=== PATIENT | male | born 1965 | race Asian ===

== ENCOUNTER 2021-08-13 16:46 | Emergency (ER) | payer OTHER ==
[~2021-08-13] VITALS: Ht 165.1 cm; Wt 70.3 kg
[2021-08-13 16:46] VITALS: BP_SYST 132
--- NOTE | 2021-08-13 16:46 | NUR ---
BROUGHT BACK TO BED #4 AND TRIAGED. REPORT GIVEN TO DELMY
[2021-08-13] MEDS ORDERED: FAMOTIDINE PF 20 MG/2 ML VIAL IVP ONE (17:00)
[2021-08-13] MEDS ORDERED: methylPREDNISolone SOD SUCC/PF 62.5 MG/ML VIAL IVP ONE (17:00)
[2021-08-13] MEDS ORDERED: DIPHENHYDRAMINE INJ 50 MG/ML VIAL IVP ONE (17:00)
[2021-08-13] MEDS ORDERED: FAMO20TA8 PO (18:11)
[2021-08-13] MEDS ORDERED: DIPH25CA83 PO (18:11)
[2021-08-13] MEDS ORDERED: PRED20TA PO (18:11)
--- NOTE | 2021-08-13 18:13 | NUR ---
PT STATES FEELING BETTER VSS HIVE AND RENDNESS GETTING BETTER
--- NOTE | 2021-08-13 18:23 | NUR ---
Patient given written and verbal discharge instructions and verbalizes understanding. JESUS FENG MD discussed with patient the results and treatment provided. Patient in stable condition. ID arm band removed. IV catheter removed intact and dressing applied, no active bleeding. Rx of PEPCID, PREDNISONE, BENADRYL given. Patient educated on pain management and to follow up with PMD. Pain Scale 0. Opportunity for questions provided and answered. Medication side effect fact sheet provided.
[2021-08-13 18:24] VITALS: BP_SYST 144
== END 2021-08-13 18:23 | disposition home or self-care (01) ==
LOC: SED 16:46
DX: T63.481A Toxic effect of venom of other arthropod, accidental (unintentional), initial encounter (principal); I10 Essential (primary) hypertension; E11.9 Type 2 diabetes mellitus without complications; Z79.899 Other long term (current) drug therapy; Y92.89 Other specified places as the place of occurrence of the external cause
CPT/HCPCS: 96374; 96375; 99284; J1200; J2930; J3490